=== PATIENT | male | born 1940 | race African-American/Black ===

== ENCOUNTER 2017-01-30 05:38 | Inpatient (IN) ==
[2017-01-24 15:22] LABS: Apearance,Urine CLEAR (Clear); Bilirubin,Urine Negative (Negative); Blood, Urine Small mg/dL (Negative); Glucose,Urine (UA) Negative (Negative); Ketones,Urine Negative (Negative); Mucus,Urine Occasional /LPF (Occasional); Nitrite,Urine Negative (Negative); Protein,Urine Negative; RBC,Urine 2 /HPF (0-4); Urine Color Yellow (Yellow); Urine Specific Gravity 1.017 (1.001-1.035); Urine Urobilinogen < 2.0 EU/DL (0.2-1.0); WBC,Urine 1 /HPF (0-6)
[2017-01-30] MEDS ORDERED: IPRATROPIUM 500 MCG/2.5 ML NEB RESP TX ONE (05:47)
[2017-01-30] MEDS ORDERED: DIAZEPAM 5 MG TABLET PO ONE (05:47)
[2017-01-30] MEDS ORDERED: ALBUTEROL 2.5 MG/3 ML NEB RESP TX ONE ×3 (05:47→11:55)
[2017-01-30] MEDS ORDERED: FAMOTIDINE 20 MG TABLET PO ONE (05:47)
[2017-01-30] MEDS ORDERED: cefTRIAXone 1,000 MG in SYRINGE 1 EACH IV ONE (06:00)
[2017-01-30] MEDS ORDERED: ALVIMOPAN 12 MG CAPSULE PO ONE (06:00)
[2017-01-30] MEDS ORDERED: DIAZEPAM 5 MG TABLET ONE (06:06)
[2017-01-30] MEDS ORDERED: ALVIMOPAN 12 MG CAPSULE ONE (06:06)
[2017-01-30] MEDS ORDERED: FAMOTIDINE 20 MG TABLET ONE (06:07)
[2017-01-30] MEDS ORDERED: cefTRIAXone 1,000 MG VIAL ONE (06:07)
[2017-01-30] MEDS ORDERED: INDOCYANINE GREEN 25 MG VIAL IV ONE (07:43)
[2017-01-30 08:59] LABS: Apearance,Urine CLEAR (Clear); Bilirubin,Urine Negative (Negative); Blood, Urine Small mg/dL (Negative); Glucose,Urine (UA) Negative (Negative); Ketones,Urine Negative (Negative); Mucus,Urine Occasional /LPF (Occasional); Nitrite,Urine Negative (Negative); Protein,Urine Negative; RBC,Urine 1 /HPF (0-4); Squamous Epithelial Cell,Urine Occasional /HPF (0-10); Urine Color Straw (Yellow); Urine Specific Gravity 1.009 (1.001-1.035); Urine Urobilinogen < 2.0 EU/DL (0.2-1.0); WBC,Urine <1 /HPF (0-6)
[2017-01-30] MEDS ORDERED: SUGAMMADEX 200 MG/2 ML VIAL IV ONE (10:30)
[2017-01-30] MEDS ORDERED: ONDANSETRON 4 MG/2 ML VIAL IV PRN (10:39)
[2017-01-30] MEDS ORDERED: diphenhydrAMINE 50 MG/1 ML VIAL IV PRN (10:39)
[2017-01-30] MEDS ORDERED: PROPOFOL 200 MG/20 ML VIAL IV ONE (10:52)
[2017-01-30] MEDS ORDERED: SEVOFLURANE 1 UNIT/15 MINUTE INH ONE (10:53)
[2017-01-30] MEDS ORDERED: MIDAZOLAM 2 MG/2 ML VIAL ONE (10:53)
[2017-01-30] MEDS ORDERED: ONDANSETRON 4 MG/2 ML VIAL ONE (10:53)
[2017-01-30] MEDS ORDERED: ROCURONIUM 100 MG/10 ML VIAL IV ONE (10:54)
[2017-01-30] MEDS ORDERED: PHENYLEPHRINE 50 MG/5 ML VIAL ONE (10:54)
[2017-01-30] MEDS ORDERED: LACTATED RINGERS 1,000 ML IV ONE (10:54)
[2017-01-30] MEDS ORDERED: SODIUM CHLORIDE 0.9% 250 ML IV ONE (10:54)
[2017-01-30] MEDS ORDERED: ACETAMINOPHEN 1,000 MG/100 ML VIAL IV ONE (10:54)
[2017-01-30] MEDS ORDERED: HYDROmorphone PCA 30 MG/30 ML SYRINGE IV SCH (11:00)
[2017-01-30] MEDS ORDERED: HYDROmorphone PCA 30 MG/30 ML SYRINGE IV ONE (11:10)
[2017-01-30] MEDS ORDERED: ALBUTEROL 2.5 MG/3 ML NEB RESP TX PRN (13:00)
[2017-01-30] MEDS: LACTATED RINGERS 1,000 ML IV SCH (13:31)
[2017-01-30] MEDS: SODIUM CHLORIDE 0.45% 1,000 ML IV SCH (13:31)
[2017-01-30] MEDS: THEOPHYLLINE ER 300 MG TABLET PO SCH (16:19)
[2017-01-30] MEDS: BECLOMETHASONE 40 MCG/PUFF INHALER 8.7 GM INH SCH (20:32)
[2017-01-30] MEDS: FLUTICASONE/SALMETEROL 250-50 DISKUS 14 DOSE INH SCH (20:33)
[2017-01-30] MEDS: MAGNESIUM CHLORIDE 64 MG TABLET PO SCH (20:36)
[2017-01-30] MEDS: ALVIMOPAN 12 MG CAPSULE PO SCH (20:41)
[2017-01-30] MEDS: INSULIN LISPRO 100 UNIT/ML SUBCUT SCH (20:46)
[2017-01-30] MEDS ORDERED: FLUTICASONE/SALMETEROL 250-50 DISKUS 14 DOSE INH SCH (21:00)
[2017-01-31 07:10] LABS: Basophils % 0.4 % (0.0-0.8); Eosinophils % 0.4 % (0.00-10.9); Hemoglobin 11.2 GM/DL (14.0-18.0); Immature Granulocytes % 0.4 %; Immature Granulocytes Absolute 0.04 #; Lymphocytes # 1.3 10*3/uL (1.4-4.0); Lymphocytes % 13.3 % (21.2-54.2); Mean Corpuscular Hemoglobin 26 PG (27-34); Mean Corpuscular Volume 82.2 FL (87-102); Monocytes # 0.8 10*3/uL (0.11-0.8); Monocytes % 8.2 % (1.7-12.7); Neutrophils # 7.4 10*3/uL (1.4-7.4); Neutrophils % 77.3 % (38.7-73.9); Platelet Count 246 T/CUMM (130-400); Red Blood Count 4.26 MC/CUMM (3.8-5.5); Red Cell Distribution Width 15.7 % (9.3-17.3); White Blood Count 9.6 T/CUMM (4-12)
[2017-01-31] MEDS: LACTATED RINGERS 1,000 ML IV SCH (07:22)
[2017-01-31] MEDS: SODIUM CHLORIDE 0.45% 1,000 ML IV SCH ×2 (07:23→11:36)
[2017-01-31] MEDS: IPRATROPIUM 500 MCG/2.5 ML NEB RESP TX SCH ×4 (07:34→20:21)
[2017-01-31 07:41] LABS: Calcium 8.1 MG/DL (8.5-10.1); Osmolality,Calculated 276.7 MOS/KG (273-304); Potassium 3.9 MMOL/L (3.5-5.1)
[2017-01-31] MEDS: CITALOPRAM 20 MG TABLET PO SCH (09:45)
[2017-01-31] MEDS: INSULIN LISPRO 100 UNIT/ML SUBCUT SCH ×4 (09:45→21:15)
[2017-01-31] MEDS: MAGNESIUM CHLORIDE 64 MG TABLET PO SCH ×2 (09:45→21:15)
[2017-01-31] MEDS: ROFLUMILAST 500 MCG TABLET PO SCH (09:45)
[2017-01-31] MEDS: predniSONE 5 MG TABLET PO SCH (09:45)
[2017-01-31] MEDS: ALVIMOPAN 12 MG CAPSULE PO SCH ×2 (09:46→21:15)
[2017-01-31] MEDS: amLODIPine 5 MG TABLET PO SCH (09:46)
[2017-01-31] MEDS: hydroCHLOROthiazide 12.5 MG CAPSULE PO SCH (09:46)
[2017-01-31] MEDS: FLUTICASONE/SALMETEROL 250-50 DISKUS 14 DOSE INH SCH ×2 (09:47→21:15)
[2017-01-31] MEDS: THEOPHYLLINE ER 300 MG TABLET PO SCH ×2 (09:48→16:25)
[2017-01-31] MEDS: BECLOMETHASONE 40 MCG/PUFF INHALER 8.7 GM INH SCH ×2 (09:49→21:16)
[2017-01-31] MEDS ORDERED: oxyCODONE/ACETAMINOPHEN 5-325 MG TABLET PO PRN ×2 (09:59→11:25)
[2017-01-31] MEDS ORDERED: BENZONATATE 100 MG CAPSULE PO PRN (12:37)
[2017-01-31] MEDS ORDERED: GLUCAGON 1 MG VIAL IM PRN (13:03)
[2017-01-31] MEDS ORDERED: DEXTROSE 50% 25 GM/50 ML VIAL IV PRN (13:03)
[2017-02-01 07:05] LABS: Basophils # 0.1 10*3/uL (0.0-0.2); Basophils % 0.5 % (0.0-0.8); Eosinophils # 0.1 10*3/uL (0.0-0.87); Eosinophils % 0.7 % (0.00-10.9); Hematocrit 40.2 VOL% (42.0-52.0); Hemoglobin 12.6 GM/DL (14.0-18.0); Immature Granulocytes % 0.3 %; Immature Granulocytes Absolute 0.03 #; Lymphocytes # 1.9 10*3/uL (1.4-4.0); Lymphocytes % 16.5 % (21.2-54.2); Mean Corpuscular HGB Conc 31.3 GM/DL (32-36); Mean Corpuscular Hemoglobin 26 PG (27-34); Mean Corpuscular Volume 83.9 FL (87-102); Mean Platelet Volume 10.9 FL (9.6-12.0); Monocytes # 0.9 10*3/uL (0.11-0.8); Monocytes % 8.2 % (1.7-12.7); Neutrophils # 8.3 10*3/uL (1.4-7.4); Neutrophils % 73.8 % (38.7-73.9); Platelet Count 268 T/CUMM (130-400); Red Blood Count 4.79 MC/CUMM (3.8-5.5); Red Cell Distribution Width 15.6 % (9.3-17.3); White Blood Count 11.2 T/CUMM (4-12)
[2017-02-01 07:35] LABS: Calcium 9.2 MG/DL (8.5-10.1); Osmolality,Calculated 276.7 MOS/KG (273-304); Potassium 3.8 MMOL/L (3.5-5.1)
[2017-02-01] MEDS: IPRATROPIUM 500 MCG/2.5 ML NEB RESP TX SCH ×4 (08:03→21:10)
[2017-02-01] MEDS ORDERED: BISACODYL 10 MG SUPP RECTAL ONE (09:05)
[2017-02-01] MEDS: FLUTICASONE/SALMETEROL 250-50 DISKUS 14 DOSE INH SCH ×2 (10:13→22:53)
[2017-02-01] MEDS: LACTATED RINGERS 1,000 ML IV SCH (10:13)
[2017-02-01] MEDS: INSULIN LISPRO 100 UNIT/ML SUBCUT SCH ×4 (10:13→22:52)
[2017-02-01] MEDS: BECLOMETHASONE 40 MCG/PUFF INHALER 8.7 GM INH SCH ×2 (10:13→22:52)
[2017-02-01] MEDS: MAGNESIUM CHLORIDE 64 MG TABLET PO SCH ×2 (10:14→22:51)
[2017-02-01] MEDS: amLODIPine 5 MG TABLET PO SCH (10:14)
[2017-02-01] MEDS: hydroCHLOROthiazide 12.5 MG CAPSULE PO SCH (10:14)
[2017-02-01] MEDS: CITALOPRAM 20 MG TABLET PO SCH (10:14)
[2017-02-01] MEDS: predniSONE 5 MG TABLET PO SCH (10:14)
[2017-02-01] MEDS: THEOPHYLLINE ER 300 MG TABLET PO SCH ×2 (10:14→17:28)
[2017-02-01] MEDS: ALVIMOPAN 12 MG CAPSULE PO SCH ×2 (10:14→22:51)
[2017-02-01] MEDS: ROFLUMILAST 500 MCG TABLET PO SCH (10:14)
[2017-02-02] MEDS: IPRATROPIUM 500 MCG/2.5 ML NEB RESP TX SCH ×2 (07:59→11:00)
[2017-02-02] MEDS: INSULIN LISPRO 100 UNIT/ML SUBCUT SCH ×2 (09:12→12:17)
[2017-02-02] MEDS: MAGNESIUM CHLORIDE 64 MG TABLET PO SCH (09:45)
[2017-02-02] MEDS: amLODIPine 5 MG TABLET PO SCH (09:45)
[2017-02-02] MEDS: hydroCHLOROthiazide 12.5 MG CAPSULE PO SCH (09:45)
[2017-02-02] MEDS: CITALOPRAM 20 MG TABLET PO SCH (09:45)
[2017-02-02] MEDS: ALVIMOPAN 12 MG CAPSULE PO SCH (09:46)
[2017-02-02] MEDS: THEOPHYLLINE ER 300 MG TABLET PO SCH (09:46)
[2017-02-02] MEDS: FLUTICASONE/SALMETEROL 250-50 DISKUS 14 DOSE INH SCH (09:46)
[2017-02-02] MEDS: ROFLUMILAST 500 MCG TABLET PO SCH (09:46)
[2017-02-02] MEDS: BECLOMETHASONE 40 MCG/PUFF INHALER 8.7 GM INH SCH (09:46)
[2017-02-02] MEDS: predniSONE 5 MG TABLET PO SCH (09:46)
[2017-02-02 11:51] VITALS: BP 118/69
== END 2017-02-02 14:36 | disposition home or self-care (01) | DRG 657 ==
LOC: N.OR 05:38 → N.SDSINP 05:39 → N.5E 12:32
PROVIDERS: ADMIT Urology; ATTEND Urology

== ENCOUNTER 2017-07-01 00:28 | Inpatient (IN) ==
[2017-07-01] MEDS ORDERED: ALBUTEROL/IPRATROPIUM 3 ML NEB RESP TX STA (01:13)
[2017-07-01 01:25] LABS: Basophils % 0.2 % (0.0-0.8); Eosinophils % 0.1 % (0.00-10.9); Hematocrit 39.2 VOL% (42.0-52.0); Hemoglobin 12.2 GM/DL (14.0-18.0); Immature Granulocytes % 0.7 %; Immature Granulocytes Absolute 0.11 #; Lymphocytes # 1.4 10*3/uL (1.4-4.0); Lymphocytes % 9.1 % (21.2-54.2); Mean Corpuscular HGB Conc 31.1 GM/DL (32-36); Mean Corpuscular Hemoglobin 26 PG (27-34); Mean Corpuscular Volume 84.7 FL (87-102); Mean Platelet Volume 10.7 FL (9.6-12.0); Monocytes # 1.2 10*3/uL (0.11-0.8); Monocytes % 8.2 % (1.7-12.7); Neutrophils # 12.1 10*3/uL (1.4-7.4); Neutrophils % 81.7 % (38.7-73.9); Platelet Count 319 T/CUMM (130-400); Red Blood Count 4.63 MC/CUMM (3.8-5.5); Red Cell Distribution Width 15.5 % (9.3-17.3); White Blood Count 14.9 T/CUMM (4-12)
[2017-07-01 01:44] LABS: Albumin 2.9 G/DL (3.4-5.0); Bilirubin,Total 0.4 MG/DL (0.2-1.0); Calcium 8.7 MG/DL (8.5-10.1); Osmolality,Calculated 282.3 MOS/KG (273-304); Potassium 3.7 MMOL/L (3.5-5.1); Total Protein 7.1 G/DL (6.4-8.3)
[2017-07-01 01:46] LABS: CKMB % 1.9 %; Troponin I Only < 0.015 NG/ML (0.00-0.045)
[2017-07-01] MEDS ORDERED: SODIUM CHLORIDE 0.9% 1,000 ML IV STA (02:05)
[2017-07-01] MEDS ORDERED: cefTRIAXone 1,000 MG VIAL IM STA (02:12)
[2017-07-01 02:21] LABS: Band Neutrophils 9 % (0-10); Lymphocytes 9 % (20-55); Segmented Neutrophils 73 % (50-85); Total Cells Counted 100
[2017-07-01 02:22] LABS: Polychromasia Slight
[2017-07-01] MEDS ORDERED: methylPREDNISolone SOD SUC 40 MG/1 ML VIAL IV SCH (03:24)
[2017-07-01] MEDS ORDERED: GLUCAGON 1 MG VIAL IM PRN (03:24)
[2017-07-01] MEDS ORDERED: ONDANSETRON 4 MG/2 ML VIAL IV PRN (03:24)
[2017-07-01] MEDS ORDERED: DEXTROSE 50% 25 GM/50 ML VIAL IV PRN (03:24)
[2017-07-01] MEDS ORDERED: ALBUTEROL/IPRATROPIUM 3 ML NEB RESP TX PRN (03:24)
[2017-07-01] MEDS ORDERED: ACETAMINOPHEN 325 MG TABLET PO PRN (03:24)
[2017-07-01] MEDS: SODIUM CHLORIDE 0.9% 1,000 ML IV SCH ×2 (04:29→18:10)
[2017-07-01] MEDS: AZITHROMYCIN INJ 500 MG in SODIUM CHLORIDE 0.9% 250 ML IV SCH (04:34)
[2017-07-01 07:21] LABS: Hemoglobin A1C 6.7 % (4.2-6.3)
[2017-07-01] MEDS: ALBUTEROL/IPRATROPIUM 3 ML NEB RESP TX SCH ×3 (07:38→18:59)
[2017-07-01 07:56] LABS: Theophylline 6.2 UG/ML (10-20)
[2017-07-01] MEDS: INSULIN REGULAR 100 UNIT/ML SUBCUT SCH ×4 (09:09→21:52)
[2017-07-01] MEDS: ENOXAPARIN 40 MG/0.4 ML SYRINGE SUBCUT SCH (09:09)
[2017-07-01] MEDS: CITALOPRAM 20 MG TABLET PO SCH (09:10)
[2017-07-01] MEDS: MELOXICAM 7.5 MG TABLET PO SCH (09:10)
[2017-07-01] MEDS: DOCUSATE SODIUM 100 MG CAPSULE PO SCH ×2 (09:10→21:49)
[2017-07-01] MEDS: hydroCHLOROthiazide 12.5 MG CAPSULE PO SCH (09:10)
[2017-07-01] MEDS: ASPIRIN EC 81 MG TABLET PO SCH (09:10)
[2017-07-01] MEDS: amLODIPine 5 MG TABLET PO SCH (09:11)
[2017-07-01] MEDS: PANTOPRAZOLE 40 MG TABLET PO SCH (09:11)
[2017-07-01] MEDS: THEOPHYLLINE ER 300 MG TABLET PO SCH ×2 (09:11→21:50)
[2017-07-01] MEDS: ROFLUMILAST 500 MCG TABLET PO SCH (09:11)
[2017-07-01] MEDS: methylPREDNISolone SOD SUC 40 MG/1 ML VIAL IV SCH ×2 (13:54→21:50)
[2017-07-01] MEDS: cefTRIAXone 1,000 MG in SYRINGE 1 EACH IV SCH (15:29)
[2017-07-01] MEDS: PRAVASTATIN 20 MG TABLET PO SCH (21:49)
[2017-07-02] MEDS: ALBUTEROL/IPRATROPIUM 3 ML NEB RESP TX SCH ×4 (00:33→18:30)
[2017-07-02] MEDS: cefTRIAXone 1,000 MG in SYRINGE 1 EACH IV SCH ×2 (02:53→21:39)
[2017-07-02] MEDS: methylPREDNISolone SOD SUC 40 MG/1 ML VIAL IV SCH ×3 (05:17→21:38)
[2017-07-02] MEDS: AZITHROMYCIN INJ 500 MG in SODIUM CHLORIDE 0.9% 250 ML IV SCH (05:17)
[2017-07-02] MEDS: SODIUM CHLORIDE 0.9% 1,000 ML IV SCH ×2 (07:33→20:10)
[2017-07-02 08:04] LABS: Basophils % 0.2 % (0.0-0.8); Hematocrit 36.6 VOL% (42.0-52.0); Hemoglobin 11.7 GM/DL (14.0-18.0); Immature Granulocytes % 1.6 %; Lymphocytes # 1.1 10*3/uL (1.4-4.0); Lymphocytes % 5.5 % (21.2-54.2); Mean Corpuscular Hemoglobin 27 PG (27-34); Mean Platelet Volume 10.3 FL (9.6-12.0); Monocytes # 0.7 10*3/uL (0.11-0.8); Monocytes % 3.6 % (1.7-12.7); Neutrophils % 89.1 % (38.7-73.9); Platelet Count 339 T/CUMM (130-400); Red Blood Count 4.41 MC/CUMM (3.8-5.5); Red Cell Distribution Width 15.1 % (9.3-17.3); White Blood Count 19.1 T/CUMM (4-12)
[2017-07-02] MEDS: INSULIN REGULAR 100 UNIT/ML SUBCUT SCH ×4 (08:05→20:44)
[2017-07-02 08:36] LABS: Calcium 8.5 MG/DL (8.5-10.1); Osmolality,Calculated 282.5 MOS/KG (273-304); Potassium 3.5 MMOL/L (3.5-5.1)
[2017-07-02] MEDS: hydroCHLOROthiazide 12.5 MG CAPSULE PO SCH (09:33)
[2017-07-02] MEDS: amLODIPine 5 MG TABLET PO SCH (09:33)
[2017-07-02] MEDS: ENOXAPARIN 40 MG/0.4 ML SYRINGE SUBCUT SCH (09:33)
[2017-07-02] MEDS: DOCUSATE SODIUM 100 MG CAPSULE PO SCH ×2 (09:33→20:35)
[2017-07-02] MEDS: CITALOPRAM 20 MG TABLET PO SCH (09:33)
[2017-07-02] MEDS: PANTOPRAZOLE 40 MG TABLET PO SCH (09:33)
[2017-07-02] MEDS: MELOXICAM 7.5 MG TABLET PO SCH (09:33)
[2017-07-02] MEDS: ROFLUMILAST 500 MCG TABLET PO SCH (09:33)
[2017-07-02] MEDS: ASPIRIN EC 81 MG TABLET PO SCH (09:33)
[2017-07-02] MEDS: THEOPHYLLINE ER 300 MG TABLET PO SCH ×2 (09:33→20:35)
[2017-07-02] MEDS: guaiFENesin 200 MG/10 ML UDCUP PO PRN (12:47)
[2017-07-02] MEDS: PRAVASTATIN 20 MG TABLET PO SCH (20:35)
[2017-07-03] MEDS: methylPREDNISolone SOD SUC 40 MG/1 ML VIAL IV SCH ×3 (07:00→21:37)
[2017-07-03] MEDS: ALBUTEROL/IPRATROPIUM 3 ML NEB RESP TX SCH ×4 (07:14→18:30)
[2017-07-03] MEDS: INSULIN REGULAR 100 UNIT/ML SUBCUT SCH ×4 (07:34→21:24)
[2017-07-03] MEDS: amLODIPine 5 MG TABLET PO SCH (10:08)
[2017-07-03] MEDS: CITALOPRAM 20 MG TABLET PO SCH (10:08)
[2017-07-03] MEDS: PANTOPRAZOLE 40 MG TABLET PO SCH (10:08)
[2017-07-03] MEDS: hydroCHLOROthiazide 12.5 MG CAPSULE PO SCH (10:08)
[2017-07-03] MEDS: ASPIRIN EC 81 MG TABLET PO SCH (10:08)
[2017-07-03] MEDS: MELOXICAM 7.5 MG TABLET PO SCH (10:08)
[2017-07-03] MEDS: THEOPHYLLINE ER 300 MG TABLET PO SCH ×2 (10:08→21:19)
[2017-07-03] MEDS: cefTRIAXone 1,000 MG in SYRINGE 1 EACH IV SCH ×2 (10:09→21:40)
[2017-07-03] MEDS: DOCUSATE SODIUM 100 MG CAPSULE PO SCH ×2 (10:09→21:19)
[2017-07-03] MEDS: ENOXAPARIN 40 MG/0.4 ML SYRINGE SUBCUT SCH (10:09)
[2017-07-03] MEDS: ROFLUMILAST 500 MCG TABLET PO SCH (10:09)
[2017-07-03] MEDS: AZITHROMYCIN INJ 500 MG in SODIUM CHLORIDE 0.9% 250 ML IV SCH (10:15)
[2017-07-03] MEDS: SODIUM CHLORIDE 0.9% 1,000 ML IV SCH (10:38)
[2017-07-03] MEDS: guaiFENesin 200 MG/10 ML UDCUP PO PRN (17:32)
[2017-07-03] MEDS: PRAVASTATIN 20 MG TABLET PO SCH (21:20)
[2017-07-04] MEDS: ALBUTEROL/IPRATROPIUM 3 ML NEB RESP TX SCH ×2 (00:07→06:45)
[2017-07-04] MEDS: methylPREDNISolone SOD SUC 40 MG/1 ML VIAL IV SCH (07:05)
[2017-07-04] MEDS: INSULIN REGULAR 100 UNIT/ML SUBCUT SCH ×2 (08:02→11:39)
[2017-07-04] MEDS: MELOXICAM 7.5 MG TABLET PO SCH (08:43)
[2017-07-04] MEDS: CITALOPRAM 20 MG TABLET PO SCH (08:43)
[2017-07-04] MEDS: hydroCHLOROthiazide 12.5 MG CAPSULE PO SCH (08:43)
[2017-07-04] MEDS: ROFLUMILAST 500 MCG TABLET PO SCH (08:43)
[2017-07-04] MEDS: THEOPHYLLINE ER 300 MG TABLET PO SCH (08:43)
[2017-07-04] MEDS: PANTOPRAZOLE 40 MG TABLET PO SCH (08:44)
[2017-07-04] MEDS: DOCUSATE SODIUM 100 MG CAPSULE PO SCH (08:44)
[2017-07-04] MEDS: ASPIRIN EC 81 MG TABLET PO SCH (08:44)
[2017-07-04] MEDS: amLODIPine 5 MG TABLET PO SCH (08:44)
[2017-07-04] MEDS: ENOXAPARIN 40 MG/0.4 ML SYRINGE SUBCUT SCH (08:44)
[2017-07-04] MEDS: AZITHROMYCIN INJ 500 MG in SODIUM CHLORIDE 0.9% 250 ML IV SCH (08:45)
[2017-07-04] MEDS: cefTRIAXone 1,000 MG in SYRINGE 1 EACH IV SCH (08:45)
[2017-07-04] MEDS ORDERED: LEVOFLOXACIN 750 MG TABLET PO SCH (11:30)
[2017-07-04] MEDS ORDERED: LACTOBACILLUS RHAMNOSUS GG CAPSULE PO SCH (11:30)
[2017-07-04] MEDS ORDERED: predniSONE 20 MG TABLET PO SCH (11:30)
[2017-07-04 11:41] VITALS: BP 136/93
== END 2017-07-04 13:50 | disposition home or self-care (01) | DRG 190 ==
LOC: N.ED 00:28 → SUATTDRO 02:24 → N.EDINP 02:24 → N.2E 03:00
PROVIDERS: ADMIT Family Medicine; ATTEND Internal Medicine Infectious Disease

== ENCOUNTER 2018-04-15 13:40 | Inpatient (IN) ==
[2018-04-15] MEDS ORDERED: ALBUTEROL/IPRATROPIUM 3 ML NEB RESP TX STA (14:23)
[2018-04-15] MEDS ORDERED: methylPREDNISolone SOD SUC 125 MG/2 ML VIAL IV STA (14:23)
[2018-04-15 15:04] LABS: Eosinophils % 0.1 % (0.00-10.9); Red Blood Count 6.04 MC/CUMM (3.8-5.5)
[2018-04-15 15:13] LABS: PT Patient Result 10.8 SECS
[2018-04-15 15:16] LABS: Albumin 3.8 G/DL (3.4-5.0); Bilirubin,Total 0.5 MG/DL (0.2-1.0); Calcium 9.6 MG/DL (8.5-10.1); Osmolality,Calculated 279.5 MOS/KG (273-304)
[2018-04-15 15:23] LABS: CKMB % 3.3 %; Troponin I 0.028 NG/ML (0.00-0.045)
[2018-04-15 15:30] LABS: Hematocrit 52.3 VOL% (42.0-52.0); Lymphocytes # 0.9 10*3/uL (1.4-4.0); Mean Corpuscular Volume 86.6 FL (87-102); Monocytes % 3.7 % (1.7-12.7)
[2018-04-15 15:38] LABS: Basophils % 0.3 % (0.0-0.8); Immature Granulocytes % 0.6 %; Immature Granulocytes Absolute 0.09 #; Lymphocytes % 5.6 % (21.2-54.2); Mean Corpuscular HGB Conc 30.6 GM/DL (32-36); Mean Corpuscular Hemoglobin 27 PG (27-34); Mean Platelet Volume 11.6 FL (9.6-12.0); Monocytes # 0.6 10*3/uL (0.11-0.8); Neutrophils # 13.7 10*3/uL (1.4-7.4); Neutrophils % 89.7 % (38.7-73.9); Platelet Count 305 T/CUMM (130-400); Red Cell Distribution Width 14.2 % (9.3-17.3); White Blood Count 15.2 T/CUMM (4-12)
[2018-04-15] MEDS ORDERED: GLUCAGON 1 MG VIAL IM PRN (15:52)
[2018-04-15] MEDS ORDERED: ONDANSETRON 4 MG/2 ML VIAL IV PRN (15:52)
[2018-04-15] MEDS ORDERED: MORPHINE 4 MG/1 ML VIAL IV PRN (15:52)
[2018-04-15] MEDS ORDERED: BISACODYL 5 MG TABLET PO PRN (15:52)
[2018-04-15] MEDS ORDERED: DEXTROSE 50% 25 GM/50 ML VIAL IV PRN (15:52)
[2018-04-15] MEDS ORDERED: ACETAMINOPHEN 325 MG TABLET PO PRN (15:52)
[2018-04-15] MEDS: INSULIN LISPRO 100 UNIT/ML SUBCUT SCH ×2 (16:30→22:15)
[2018-04-15] MEDS: SODIUM CHLORIDE 0.45% 1,000 ML IV SCH (17:18)
[2018-04-15] MEDS: ENOXAPARIN 40 MG/0.4 ML SYRINGE SUBCUT SCH (17:25)
[2018-04-15] MEDS: predniSONE 20 MG TABLET PO SCH (19:27)
[2018-04-15] MEDS: ALBUTEROL/IPRATROPIUM 3 ML NEB RESP TX SCH ×2 (19:53→22:55)
[2018-04-15] MEDS ORDERED: ALBUTEROL 2.5 MG/3 ML NEB RESP TX SCH (22:00)
[2018-04-15] MEDS: MAGNESIUM CHLORIDE 64 MG TABLET PO SCH (22:14)
[2018-04-15] MEDS: SIMVASTATIN 10 MG TABLET PO SCH (22:15)
[2018-04-15] MEDS: THEOPHYLLINE ER 300 MG TABLET PO SCH (22:15)
[2018-04-15] MEDS: CIPROFLOXACIN 500 MG TABLET PO SCH (22:15)
[2018-04-16] MEDS: ALBUTEROL/IPRATROPIUM 3 ML NEB RESP TX SCH ×6 (03:43→22:37)
[2018-04-16 04:51] LABS: Basophils % 0.1 % (0.0-0.8); Hematocrit 50.2 VOL% (42.0-52.0); Hemoglobin 15.5 GM/DL (14.0-18.0); Immature Granulocytes % 0.5 %; Immature Granulocytes Absolute 0.05 #; Lymphocytes # 0.7 10*3/uL (1.4-4.0); Lymphocytes % 6.3 % (21.2-54.2); Mean Corpuscular HGB Conc 30.9 GM/DL (32-36); Mean Corpuscular Hemoglobin 27 PG (27-34); Mean Corpuscular Volume 85.8 FL (87-102); Mean Platelet Volume 10.9 FL (9.6-12.0); Monocytes # 0.4 10*3/uL (0.11-0.8); Monocytes % 3.5 % (1.7-12.7); Neutrophils # 9.4 10*3/uL (1.4-7.4); Neutrophils % 89.6 % (38.7-73.9); Platelet Count 322 T/CUMM (130-400); Red Blood Count 5.85 MC/CUMM (3.8-5.5); White Blood Count 10.5 T/CUMM (4-12)
[2018-04-16 05:36] LABS: Calcium 9.2 MG/DL (8.5-10.1); Potassium 4.2 MMOL/L (3.5-5.1)
[2018-04-16] MEDS: SODIUM CHLORIDE 0.45% 1,000 ML IV SCH ×2 (06:44→15:56)
[2018-04-16] MEDS: INSULIN LISPRO 100 UNIT/ML SUBCUT SCH ×4 (09:07→21:16)
[2018-04-16] MEDS: ROFLUMILAST 500 MCG TABLET PO SCH (09:08)
[2018-04-16] MEDS: CIPROFLOXACIN 500 MG TABLET PO SCH ×2 (09:08→21:17)
[2018-04-16] MEDS: MONTELUKAST 10 MG TABLET PO SCH (09:09)
[2018-04-16] MEDS: ASPIRIN EC 81 MG TABLET PO SCH (09:09)
[2018-04-16] MEDS: THEOPHYLLINE ER 300 MG TABLET PO SCH ×2 (09:09→21:17)
[2018-04-16] MEDS: FERROUS SULFATE 325 MG TABLET PO SCH (09:09)
[2018-04-16] MEDS: CITALOPRAM 20 MG TABLET PO SCH (09:10)
[2018-04-16] MEDS: predniSONE 20 MG TABLET PO SCH (09:10)
[2018-04-16] MEDS: MAGNESIUM CHLORIDE 64 MG TABLET PO SCH ×2 (09:10→21:17)
[2018-04-16] MEDS: amLODIPine 5 MG TABLET PO SCH (13:00)
[2018-04-16] MEDS: NON-FORMULARY MEDICATION (Fluticasone/Umeclidin/Vilanter [Trelegy Ellipta 100-62.5-25] 1 P INH SCH (13:01)
[2018-04-16] MEDS: ENOXAPARIN 40 MG/0.4 ML SYRINGE SUBCUT SCH (15:56)
[2018-04-16] MEDS: SIMVASTATIN 10 MG TABLET PO SCH (21:17)
[2018-04-17] MEDS: SODIUM CHLORIDE 0.45% 1,000 ML IV SCH ×3 (01:55→21:42)
[2018-04-17] MEDS: ALBUTEROL/IPRATROPIUM 3 ML NEB RESP TX SCH ×5 (02:39→19:30)
[2018-04-17 05:43] LABS: Basophils % 0.2 % (0.0-0.8); Hemoglobin 13.6 GM/DL (14.0-18.0); Immature Granulocytes % 0.6 %; Immature Granulocytes Absolute 0.12 #; Lymphocytes # 1.2 10*3/uL (1.4-4.0); Lymphocytes % 6.2 % (21.2-54.2); Mean Corpuscular HGB Conc 31.6 GM/DL (32-36); Mean Corpuscular Hemoglobin 27 PG (27-34); Mean Corpuscular Volume 85.3 FL (87-102); Mean Platelet Volume 11.1 FL (9.6-12.0); Monocytes # 1.5 10*3/uL (0.11-0.8); Monocytes % 7.6 % (1.7-12.7); Neutrophils # 16.8 10*3/uL (1.4-7.4); Neutrophils % 85.4 % (38.7-73.9); Platelet Count 305 T/CUMM (130-400); Red Blood Count 5.04 MC/CUMM (3.8-5.5); White Blood Count 19.6 T/CUMM (4-12)
[2018-04-17 06:12] LABS: Calcium 8.4 MG/DL (8.5-10.1); Osmolality,Calculated 280.8 MOS/KG (273-304); Potassium 3.7 MMOL/L (3.5-5.1)
[2018-04-17] MEDS: INSULIN LISPRO 100 UNIT/ML SUBCUT SCH ×4 (08:26→21:43)
[2018-04-17] MEDS: amLODIPine 5 MG TABLET PO SCH (08:45)
[2018-04-17] MEDS: FERROUS SULFATE 325 MG TABLET PO SCH (08:46)
[2018-04-17] MEDS: CITALOPRAM 20 MG TABLET PO SCH (08:46)
[2018-04-17] MEDS: MAGNESIUM CHLORIDE 64 MG TABLET PO SCH ×2 (08:47→21:43)
[2018-04-17] MEDS: THEOPHYLLINE ER 300 MG TABLET PO SCH ×2 (08:47→21:43)
[2018-04-17] MEDS: predniSONE 20 MG TABLET PO SCH (08:47)
[2018-04-17] MEDS: MONTELUKAST 10 MG TABLET PO SCH (08:47)
[2018-04-17] MEDS: CIPROFLOXACIN 500 MG TABLET PO SCH ×2 (08:47→21:43)
[2018-04-17] MEDS: ASPIRIN EC 81 MG TABLET PO SCH (08:47)
[2018-04-17] MEDS: ROFLUMILAST 500 MCG TABLET PO SCH (08:50)
[2018-04-17] MEDS: NON-FORMULARY MEDICATION (Fluticasone/Umeclidin/Vilanter [Trelegy Ellipta 100-62.5-25] 1 P INH SCH (08:52)
[2018-04-17] MEDS: ENOXAPARIN 40 MG/0.4 ML SYRINGE SUBCUT SCH (16:01)
[2018-04-17] MEDS: SIMVASTATIN 10 MG TABLET PO SCH (21:43)
[2018-04-18] MEDS: ALBUTEROL/IPRATROPIUM 3 ML NEB RESP TX SCH ×4 (00:34→10:43)
[2018-04-18 04:46] LABS: Basophils % 0.1 % (0.0-0.8); Hematocrit 42.4 VOL% (42.0-52.0); Hemoglobin 13.3 GM/DL (14.0-18.0); Immature Granulocytes % 0.6 %; Lymphocytes # 0.8 10*3/uL (1.4-4.0); Lymphocytes % 5.1 % (21.2-54.2); Mean Corpuscular HGB Conc 31.4 GM/DL (32-36); Mean Corpuscular Hemoglobin 27 PG (27-34); Mean Corpuscular Volume 84.6 FL (87-102); Mean Platelet Volume 10.6 FL (9.6-12.0); Monocytes # 1.1 10*3/uL (0.11-0.8); Monocytes % 6.7 % (1.7-12.7); Neutrophils % 87.5 % (38.7-73.9); Platelet Count 298 T/CUMM (130-400); Red Blood Count 5.01 MC/CUMM (3.8-5.5); Red Cell Distribution Width 14.2 % (9.3-17.3)
[2018-04-18 05:12] LABS: Calcium 8.4 MG/DL (8.5-10.1); Potassium 4.2 MMOL/L (3.5-5.1)
[2018-04-18] MEDS: INSULIN LISPRO 100 UNIT/ML SUBCUT SCH ×2 (07:37→11:13)
[2018-04-18] MEDS: CITALOPRAM 20 MG TABLET PO SCH (08:17)
[2018-04-18] MEDS: ASPIRIN EC 81 MG TABLET PO SCH (08:17)
[2018-04-18] MEDS: ROFLUMILAST 500 MCG TABLET PO SCH (08:17)
[2018-04-18] MEDS: MONTELUKAST 10 MG TABLET PO SCH (08:17)
[2018-04-18] MEDS: THEOPHYLLINE ER 300 MG TABLET PO SCH (08:17)
[2018-04-18] MEDS: CIPROFLOXACIN 500 MG TABLET PO SCH (08:17)
[2018-04-18] MEDS: MAGNESIUM CHLORIDE 64 MG TABLET PO SCH (08:17)
[2018-04-18] MEDS: predniSONE 20 MG TABLET PO SCH (08:17)
[2018-04-18] MEDS: FERROUS SULFATE 325 MG TABLET PO SCH (08:17)
[2018-04-18] MEDS: amLODIPine 5 MG TABLET PO SCH (08:19)
[2018-04-18] MEDS: SODIUM CHLORIDE 0.45% 1,000 ML IV SCH (10:16)
[2018-04-18] MEDS: NON-FORMULARY MEDICATION (Fluticasone/Umeclidin/Vilanter [Trelegy Ellipta 100-62.5-25] 1 P INH SCH (10:18)
[2018-04-18 11:18] VITALS: BP 127/77
== END 2018-04-18 12:57 | disposition home or self-care (01) | DRG 201 ==
LOC: N.ED 13:40 → N.EDINP 15:52 → N.3E 19:12
PROVIDERS: ADMIT Internal Medicine; ATTEND Internal Medicine